=== PATIENT | female | born 1985 | race Caucasian/White ===

== ENCOUNTER 2020-10-15 21:36 | Inpatient (IN) ==
[2020-10-15] MEDS ORDERED: Famotidine 20 MG/2 ML VIAL IVP PRN (21:43)
[2020-10-15] MEDS ORDERED: Lidocaine 1% 20 ML MDV INFILT PRN (21:43)
[2020-10-15] MEDS ORDERED: Naloxone 0.4 MG/ML INJ IVP PRN (21:43)
[2020-10-15] MEDS ORDERED: *HR* Nalbuphine 10 MG/ML AMPUL IV PRN (21:43)
[2020-10-15] MEDS ORDERED: Metoclopramide 10 MG/2 ML VIAL IVP PRN (21:43)
[2020-10-15] MEDS ORDERED: Ondansetron 4 MG/2 ML VIAL IVP PRN (21:43)
[2020-10-15] MEDS ORDERED: Ringers Solution, Lactated 1,000 ML IVC SCH (21:45)
[2020-10-15 22:41] LABS: Basophils % 0.4 %; Eosinophils # 0.2 K/mcL (0.0-0.6); Eosinophils % 1.9 %; Hematocrit 29.3 % (35.3-44.9); Hemoglobin 9.6 g/dL (11.5-15.4); Immature Granulocytes % 0.9 % (0-4); Lymphocytes # 2.6 K/mcL (0.6-4.6); Lymphocytes % 25.5 %; Mean Corpuscular HGB Conc 32.8 g/dL (31.6-35.5); Mean Corpuscular Hemoglobin 28.4 pg (28.0-33.3); Mean Corpuscular Volume 86.7 fL (83.0-100.0); Mean Platelet Volume 9.7 fL (9.4-12.4); Monocytes # 1.2 K/mcL (0.0-1.3); Monocytes % 11.5 %; Neutrophils # 6.2 K/mcL (1.6-8.9); Platelet Count 253 K/mcL (140-400); Red Blood Count 3.38 M/mcL (3.82-4.97); Red Cell Distribution Width 13.4 % (11.5-14.5); Segmented Neutrophils % 59.8 %; White Blood Count 10.3 K/mcL (4.3-11.1)
[2020-10-15 22:50] LABS: Amphetamine Screen,Urine Negative ng/mL (Cutoff=1000); Barbiturate Screen,Urine Negative ng/mL (Cutoff=200); Benzodiazepines Screen,Urine Negative ng/mL (Cutoff=200); Cannabinoid Screen,Urine Negative ng/mL (Cutoff = 50); Cocaine Screen,Urine Negative ng/mL (Cutoff= 300); Opiate Screen,Urine Negative ng/mL (Cutoff=300); Phencyclidine Screen,Urine Negative ng/mL (Cutoff=25)
[2020-10-15] MEDS ORDERED: Oxytocin 20 units/ LR 1000 mL 20 UNIT/1,000 ML BAG IVC SCH (23:45)
[2020-10-15] MEDS ORDERED: Oxytocin 20 units/ LR 1000 mL 20 UNIT/1,000 ML BAG IVC ONE (23:56)
[2020-10-16] MEDS ORDERED: Epidural Premix (fent/bupiv) 110 ML EP ONE (00:56)
[2020-10-16] MEDS ORDERED: EPHEDrine 50 MG/ML VIAL ONE (01:37)
[2020-10-16] MEDS ORDERED: Ropivacaine/PF 0.2% 20 ML VIAL EP ONE (01:56)
[2020-10-16] MEDS ORDERED: EPHEDrine 50 MG/ML VIAL IVP PRN (01:56)
[2020-10-16] MEDS ORDERED: Ondansetron 4 MG/2 ML VIAL IVP PRN (01:56)
[2020-10-16] MEDS ORDERED: Naloxone 0.4 MG/ML INJ IVP PRN (01:56)
[2020-10-16] MEDS ORDERED: *HR* FentaNYL (PF) 100 MCG/2 ML VIAL EP ONE (01:56)
[2020-10-16] MEDS ORDERED: Epidural Premix (fent/bupiv) 110 ML EP SCH (02:00)
[2020-10-16] MEDS ORDERED: Rho Immune Globulin 1,500 UNIT SYRINGE IM PRN (04:21)
[2020-10-16] MEDS ORDERED: Measles/Mumps/Rubella Vacc 0.5 ML VIAL SQ PRN (04:21)
[2020-10-16] MEDS ORDERED: Oxytocin 20 units/ LR 1000 mL 20 UNIT/1,000 ML BAG IVC ONE (04:21)
[2020-10-16] MEDS ORDERED: Acetaminophen 325 MG TABLET PO PRN (04:21)
[2020-10-16] MEDS ORDERED: Oxytocin 20 units/ LR 1000 mL 20 UNIT/1,000 ML BAG IVC SCH (04:21)
[2020-10-16] MEDS: Aspirin Enteric Coated 81 MG Tablet PO SCH (07:29)
[2020-10-16] MEDS: Ibuprofen 600 MG TABLET PO PRN ×3 (07:29→22:38)
[2020-10-16] MEDS: Prenatal Vit/FA 1 EACH TABLET PO SCH (07:29)
[2020-10-16] MEDS ORDERED: NON-FORMULARY MEDICATION 1 EACH EACH (Ferrous Sulfate 325 MG) PO SCH (09:00)
[2020-10-17 04:57] LABS: Basophils % 0.2 %; Eosinophils # 0.2 K/mcL (0.0-0.6); Eosinophils % 2.9 %; Hematocrit 24.8 % (35.3-44.9); Hemoglobin 8.4 g/dL (11.5-15.4); Immature Granulocytes % 0.8 % (0-4); Lymphocytes # 2.6 K/mcL (0.6-4.6); Lymphocytes % 31.5 %; Mean Corpuscular HGB Conc 33.9 g/dL (31.6-35.5); Mean Corpuscular Hemoglobin 29.7 pg (28.0-33.3); Mean Corpuscular Volume 87.6 fL (83.0-100.0); Mean Platelet Volume 9.8 fL (9.4-12.4); Monocytes % 11.8 %; Neutrophils # 4.4 K/mcL (1.6-8.9); Platelet Count 220 K/mcL (140-400); Red Blood Count 2.83 M/mcL (3.82-4.97); Red Cell Distribution Width 13.6 % (11.5-14.5); Segmented Neutrophils % 52.8 %; White Blood Count 8.3 K/mcL (4.3-11.1)
[2020-10-17 07:46] VITALS: BP 118/80
[2020-10-17] MEDS: Prenatal Vit/FA 1 EACH TABLET PO SCH (08:02)
[2020-10-17] MEDS: Aspirin Enteric Coated 81 MG Tablet PO SCH (08:02)
== END 2020-10-17 13:00 | disposition home or self-care (01) | DRG 807 ==
LOC: 1NENULAB 21:36 → 1NENUOBS 10-16 05:04
PROVIDERS: ADMIT Obstetrics & Gynecology; ATTEND Obstetrics & Gynecology